=== PATIENT | male | born 1950 | race Caucasian/White ===

== ENCOUNTER 2020-12-01 09:22 | Inpatient (IN) | payer MEDICARE, OTHER ==
[~2020-12-01] VITALS: Ht 190.5 cm; Wt 95.2 kg
[2020-12-01 09:40] LABS: BASOPHILS PERCENT AUTO 0 % (0-2); EOSINOPHILS ABSOLUTE AUTO 0.08 K/mm3 (0.00-0.68); EOSINOPHILS PERCENT AUTO 1 % (0-6); Hematocrit 31.1 % (37.0-53.0); Hemoglobin 10.1 g/dL (13.5-17.5); IMMATURE GRAN ABSOLUTE AUTO 0.02 K/mm3 (0.00-0.10); IMMATURE GRAN PERCENT AUTO 0 % (0-1); LYMPHOCYTES ABSOLUTE AUTO 1.23 K/mm3 (0.84-5.20); LYMPHOCYTES PERCENT AUTO 22 % (21-46); MONOCYTES ABSOLUTE AUTO 0.81 K/mm3 (0.16-1.47); MONOCYTES PERCENT AUTO 14 % (4-13); Mean Corpuscular HGB 30.8 pg (26.0-34.0); Mean Corpuscular HGB Conc 32.5 g/dL (31.5-36.5); Mean Corpuscular Volume 95 fL (80-100); Mean Platelet Volume 9.9 fL (9.1-12.4); NEUTROPHILS ABSOLUTE AUTO 3.53 K/mm3 (1.96-9.15); NEUTROPHILS PERCENT AUTO 62 % (41-73); Platelet Count 258 K/mm3 (150-400); RDW Coefficient Variation 14.9 % (11.7-14.2); RDW Standard Deviation 51.8 fL (35.1-46.3); Red Blood Cell Count 3.28 M/mm3 (4.30-5.90); White Blood Cell Count 5.67 K/mm3 (4.00-11.30)
[2020-12-01 09:55] LABS: International Normalized Ratio 1.02
[2020-12-01 09:59] LABS: Alanine Aminotransfer (ALT/SGP 6 U/L (12-78); Albumin, Blood 2.3 g/dL (3.4-5.0); Albumin/Globulin Ratio 0.3 (0.8-1.8); Alk Phos 138 U/L (50-136); Anion Gap 4 mmol/L (6-16); Aspartate Aminotrans (AST/SGOT 20 U/L (12-37); Bilirubin, Total 0.2 mg/dL (0.1-1.0); Blood Urea Nitrogen 21 mg/dL (8-24); Bun/Creatinine Ratio 19.6 (12.0-20.0); CO2, Blood 28 mmol/L (21-32); Calcium, Blood 10.3 mg/dL (8.5-10.1); Chloride, Blood 107 mmol/L (98-108); Creatinine, Blood 1.07 mg/dL (0.60-1.20); Globulin, Blood 6.8 g/dL (2.2-4.0); Glomerular Filtration Rate >60 (60-); Glucose, Blood 126 mg/dL (70-99); Potassium, Blood 3.5 mmol/L (3.5-5.5); Sodium, Blood 139 mmol/L (136-145); Total Protein, Blood 9.1 g/dL (6.4-8.2)
[2020-12-01 12:04] LABS: Free Thyroxine 1.06 ng/dL (0.70-1.60); Triiodothyronine, Free 1.46 pg/mL (2.18-3.98)
[2020-12-01] MEDS ORDERED: LOSA25 PO (12:37)
[2020-12-01] MEDS ORDERED: Lipitor10 MG (12:38)
[2020-12-01] MEDS ORDERED: CARBIDOPA-LEVO1 EA21 (12:38)
[2020-12-01 13:56] LABS: Source, Urine Clean Catch
[2020-12-01 14:06] LABS: Appearance, Urine Clear (Clear); Bilirubin, Urine Neg (Neg); Blood, Urine 2+ (Neg); Color, Urine Yellow (P-Yellow); Glucose Qualitative, Urine Neg (Neg); Ketones, Urine Neg (Neg); Leukocyte Esterase, Urine 3+ (Neg); Nitrite, Urine Neg (Neg); Protein, Urine 2+ (Neg); Urobilinogen, Urine NORM (Normal)
[2020-12-01 14:17] LABS: Bacteria Many /hpf
[2020-12-01 14:18] LABS: Red Blood Cells, Urine 0-2 /hpf (0-2); Squamous Epithelial Cells Rare /hpf (Few)
[2020-12-01 14:22] LABS: U Cannabinoids Screen DETECTED
[2020-12-01 14:23] LABS: U Amphetamine Screen Not Detected; U Barbituate Screen Not Detected; U Benzodiazapine Screen Not Detected; U Buprenorphine Screen Not Detected; U Cocaine Screen Not Detected; U Methadone Screen Not Detected; U Methamphetamine Screen Not Detected; U Opiates Screen Not Detected; U Oxycodone Screen Not Detected; U Phencyclidine Screen Not Detected; U Propoxyphene Screen Not Detected
--- NOTE | 2020-12-01 18:12 | NUR ---
SBAR REPORT FROM NORBERT HANLEY RN
[2020-12-01 20:12] LABS: Base Excess Venous 4.6 mmol/L; Bicarbonate Venous 27.6 mmol/L (24.0-30.0); PCO2 Venous 50.8 mmHg (38-42); pH Blood Venous 7.38 (7.34-7.37)
[2020-12-01] MEDS ORDERED: ASPI325 PO (21:52)
[2020-12-01] MEDS ORDERED: CITALOPRAM HBR20 M3 PO (21:56)
[2020-12-01] MEDS ORDERED: ATORVASTATIN CA20 MG (21:57)
[2020-12-01] MEDS ORDERED: LOSA50 PO (21:58)
[2020-12-01] MEDS ORDERED: MYRBETRIQ50 MG PO (22:00)
[2020-12-01] MEDS ORDERED: MONT10T PO (22:00)
[2020-12-01] MEDS ORDERED: MASOPHEN325 M3 (22:03)
[2020-12-01] MEDS ORDERED: Apple Cider Vi300 MG PO (22:03)
[2020-12-01] MEDS ORDERED: KELP150 MC1 (22:05)
[2020-12-01] MEDS ORDERED: OCUVITE BLUE L1 EACH (22:06)
[2020-12-01] MEDS ORDERED: KRILL OIL500 MG (22:06)
[2020-12-02 05:01] LABS: BASOPHILS ABSOLUTE AUTO 0.01 K/mm3 (0.00-0.23); BASOPHILS PERCENT AUTO 0 % (0-2); EOSINOPHILS ABSOLUTE AUTO 0.07 K/mm3 (0.00-0.68); EOSINOPHILS PERCENT AUTO 1 % (0-6); Hematocrit 32.6 % (37.0-53.0); Hemoglobin 10.4 g/dL (13.5-17.5); IMMATURE GRAN ABSOLUTE AUTO 0.01 K/mm3 (0.00-0.10); IMMATURE GRAN PERCENT AUTO 0 % (0-1); LYMPHOCYTES ABSOLUTE AUTO 0.96 K/mm3 (0.84-5.20); LYMPHOCYTES PERCENT AUTO 18 % (21-46); MONOCYTES ABSOLUTE AUTO 0.76 K/mm3 (0.16-1.47); MONOCYTES PERCENT AUTO 15 % (4-13); Mean Corpuscular HGB 30.7 pg (26.0-34.0); Mean Corpuscular HGB Conc 31.9 g/dL (31.5-36.5); Mean Corpuscular Volume 96 fL (80-100); Mean Platelet Volume 10.1 fL (9.1-12.4); NEUTROPHILS ABSOLUTE AUTO 3.41 K/mm3 (1.96-9.15); NEUTROPHILS PERCENT AUTO 65 % (41-73); Platelet Count 265 K/mm3 (150-400); RDW Coefficient Variation 15.1 % (11.7-14.2); Red Blood Cell Count 3.39 M/mm3 (4.30-5.90); White Blood Cell Count 5.22 K/mm3 (4.00-11.30)
[2020-12-02 05:26] LABS: Anion Gap 5 mmol/L (6-16); Blood Urea Nitrogen 17 mg/dL (8-24); Bun/Creatinine Ratio 15.7 (12.0-20.0); CO2, Blood 29 mmol/L (21-32); Chloride, Blood 106 mmol/L (98-108); Creatinine, Blood 1.08 mg/dL (0.60-1.20); Glomerular Filtration Rate >60 (60-); Glucose, Blood 108 mg/dL (70-99); Potassium, Blood 3.2 mmol/L (3.5-5.5); Sodium, Blood 140 mmol/L (136-145)
--- NOTE | 2020-12-02 07:31 | NUR ---
INSPECTOR WATCH ASSEMBLY SUMMARY PT A/O X2-3. SLEPT WELL TONIGHT. PT IS PLEASANTLY CONFUSED, FOLLOWS DIRECTIONS WELL. PT IS HYPERTENSIVE. HYDRALAZINE GIVEN X2 OVERNIGHT AND THIS MORNING FOR HYPERTENSION. PT DENIES PAIN, SOB, NAUSEA. PT HAS GOOD FLUID INTAKE AND OUTPUT. CONDOM KEMAL IN PLACE AND DRAINING URINE. TELE BEEN [facility] IN THE 60'S PER [employer] OFFICER. CALL LIGHT WITHIN REACH, BED ALARM ON. REPORT GIVEN TO ONCOMING RN.
[2020-12-02] MEDS ORDERED: CARBLEV25 SL (12:28)
[2020-12-02] MEDS ORDERED: CEPH500 PO (14:03)
--- NOTE | 2020-12-02 16:06 | NUR ---
DISCHARGE NOTE: PT PRESENT AT DISCHARGE. PT AND EDUCATED ON DISCHARGE INSTRUCTIONS. REPORTED SHE PICKED UP KEFLEX PRIOR TO ARRIVAL. PT IV'S
== END 2020-12-02 15:57 | disposition home or self-care (01) | DRG 917 ==
LOC: ER 09:22 → MEDS 16:27 → ENPENDDIS 12-02 14:57 → MEDS 12-02 15:57
PROVIDERS: Emergency Medicine; Family Medicine; Student in an Organized Health Care Education/Training Program; ADMIT Hospitalist
DX: T40.7X1A Poisoning by cannabis (derivatives), accidental (unintentional), initial encounter (principal); G92 Toxic encephalopathy; I69.351 Hemiplegia and hemiparesis following cerebral infarction affecting right dominant side; N39.0 Urinary tract infection, site not specified; G89.29 Other chronic pain; I10 Essential (primary) hypertension; E03.9 Hypothyroidism, unspecified; E11.9 Type 2 diabetes mellitus without complications; G20 Parkinson's disease; F32.9 Major depressive disorder, single episode, unspecified; Z98.890 Other specified postprocedural states; D64.9 Anemia, unspecified; F12.929 Cannabis use, unspecified with intoxication, unspecified
CPT/HCPCS: 36415; 70450; 70496; 70498; 80048; 80053; 81001; 82140; 82803; 84439; 84443; 84481; 85025; 85610; 85730; 87077; 87086; 87186; 93005; 93010; 96365; 97110; 97163; 97166; 97530; 97535; 99285-25; A9270; J0360; J0696; J1650; J7030; Q9967